=== PATIENT | female | born 1970 | race Asian ===

== ENCOUNTER 2018-12-13 11:32 | Emergency (ER) | payer SELFPAY ==
[~2018-12-13] VITALS: Ht 152.4 cm; Wt 62.3 kg
[~2018-12-13 11:32] MED LIST: CITA10TA5 PO; QUIN1TAB PO
[2018-12-13 11:35] VITALS: Ht 152.4 cm; Wt 62.3 kg
[2018-12-13] MEDS ORDERED: IBUPROFEN 800 MG TAB PO ONE (12:00)
[2018-12-13] MEDS ORDERED: IBUPROFEN 200 MG TAB PO ONE (12:00)
[2018-12-13] MEDS ORDERED: NAPR-985 PO (12:39)
[2018-12-13 13:14] VITALS: BP 148/84; PULSE 74; RESP 18
--- NOTE | 2018-12-13 13:16 | ERD ---
ER Documentation Chief Complaint Chief Complaint pt is code green , slip and fall at work left wrist pain + CMS HPI 48-year-old female presenting with pain to her left wrist and right knee after a fall at work today. Patient is an employee of [employer]. Patient slipped on a wet patch on the floor and fell on the hard basement floor. She is ambidextrous however favors her left hand. Has not taken medications for the symptoms. Medical history is hypertension. Allergy to codeine. Surgical history denies. Social history denies ROS All systems reviewed and are negative except as per history of present illness. Medications Home Meds Active Scripts Naproxen* (Naprosyn*) 500 Mg Tablet, 500 MG PO BID PRN for PAIN AND/OR INFLAMMATION, #30 TAB Prov:ESTRELLITA LYONS PA-C 12/13/18 Reported Medications Quinapril-Hydrochlorothiazide (Quinapril-Hydrochlorothiazide) 1 Tab Tablet, PO DAILY 05/30/12 Citalopram Hydrobromide* (Citalopram Hydrobromide*) 10 Mg Tablet, PO DAILY 05/30/12 Allergies Allergies: Coded Allergies: codeine (Verified Allergy, Unknown, 12/13/18) PMhx/Soc Hx Cardiac Disorders: Yes (HTN) Hx Alcohol Use: No Hx Substance Use: No Hx Tobacco Use: No FmHx Family History: No diabetes, No coronary disease, No other Physical Exam Vitals Vital Signs Date Temp Pulse Resp B/P (MAP) Pulse Ox O2 O2 Flow FiO2 Time Delivery Rate 12/13/18 97.6 94 17 164/105 99 11:35 (124) 12/13/18 98.3 101 18 169/104 98 11:35 (125) Physical Exam GENERAL: The patient is well-appearing, well-nourished, in no acute distress CHEST: Clear to auscultation bilaterally. There are no rales, wheezes or rhonchi. HEART: Regular rate and rhythm. No murmurs, clicks, rubs or gallops. EXTREMITIES: Tender to palpation over left wrist with no obvious deformity. Normal range of motion however limited secondary to pain. Strength 5 out of 5. NEUROLOGIC: Alert and oriented. Cranial nerves II through XII intact. Motor strength in all 4 extremities with 5 out of 5 strength. Sensation grossly intact. Normal speech and gait. SKIN: There is no apparent rash or petechiae. The skin is warm and dry. Results 24 hrs Current Medications Medications Dose Sig/Adolfo Start Time Status Last (Trade) Ordered Route PRN Stop Time Admin Dose Reason Admin Ibuprofen 800 mg ONCE ONCE 12/13/18 DC (Motrin) PO 12:00 12/13/18 12:01 Ibuprofen 200 mg ONCE ONCE 12/13/18 DC 12/13/18 (Motrin) PO 12:00 11:49 12/13/18 12:01 Procedures/MDM DIAGNOSTIC IMAGING REPORT Patient: ANGELICA NAIR : 1970 Age: 48 Sex: F MR #: [id number] DOS: 12/13/18 0000 Ordering MD: DRAGAN LYONS PA-C Location: [facility] Room/Bed: PROCEDURE: XR wrist. CLINICAL INDICATION: wrist pain. TECHNIQUE: 4 portable views of the left wrist were obtained. COMPARISON: None. FINDINGS: Osseous structures are intact. There is no acute fracture or dislocation. Distal ulna may be posteriorly sublux at the distal radioulnar joint. The soft tissues are unremarkable. IMPRESSION: 1. No acute fracture. 2. Possible dorsal subluxation of distal ulna at the distal radioulnar joint. ER course: Patient declined knee x-ray in the ER. Wrist left Velcro splint is applied in the ER. Neuro intact pre-and post splint application. MDM: 48-year-old female presenting with wrist pain. I have low suspicion for acute fracture dislocation. I have low suspicion for tendon or ligament rupture. I have low suspicion for snuffbox injury. Patient is discharged with strict ER precautions and told to follow-up with primary care within 1 to 2 days for close evaluation. Patient is also recommended to visit orthopedist for evaluation of the injury. Patient is told symptoms change or worsen to return immediately to the ER. All questions answered at discharge Departure Diagnosis: Primary Impression: Injury, wrist Additional Impression: Pain in wrist Condition: Stable Patient Instructions: Wrist Sprain Referrals: [facility] Hours: Wed-Wed 9:00 AM - 5:00 PM Additional Instructions: FOLLOW UP WITH YOUR PRIMARY CARE PHYSICIAN TOMORROW.Return to this facility if you are not improving as expected. ESTRELLITA LYONS PA-C Dec 13, 2018 13:16
== END 2018-12-13 13:19 | disposition home or self-care (01) ==
LOC: FTE 11:32
DX: S69.92XA Unspecified injury of left wrist, hand and finger(s), initial encounter (principal); I10 Essential (primary) hypertension; W01.0XXA Fall on same level from slipping, tripping and stumbling without subsequent striking against object, initial encounter; Y92.89 Other specified places as the place of occurrence of the external cause